=== PATIENT | male | born 1955 | race Two or more races ===

== ENCOUNTER 2018-12-11 10:52 | Inpatient (IN) | payer OTHER ==
[~2018-12-11] VITALS: Ht 180.3 cm; Wt 81.6 kg
[~2018-12-11 10:52] MED LIST: CRESTOR10 MG PO; LISINOPRIL PO; SYNTHROID75 MCG PO
== END 2018-12-13 10:41 | disposition home or self-care (01) | DRG 661 ==
LOC: CIR.AMB 10:52 → SURH 14:35 → EDSTATUS 14:51 → O/R 15:00 → SURH 15:00 → CIR.AMB 15:02 → SURH 12-12 11:22
PROVIDERS: ADMIT Urology
PROC: BT1DZZZ Fluoroscopy of Right Kidney, Ureter and Bladder (ICD-10-PCS; 2018-12-11)
PROC: 0TJB8ZZ Inspection of Bladder, Via Natural or Artificial Opening Endoscopic (ICD-10-PCS; 2018-12-11)
PROC: 0TC03ZZ Extirpation of Matter from Right Kidney, Percutaneous Approach (ICD-10-PCS; principal; 2018-12-11 08:15)
DX: N20.0 Calculus of kidney (principal)

== ENCOUNTER → 2018-12-27 | Outpatient (CLI) | payer OTHER | END | disposition home or self-care (01) | LOC: NUCLEAR 07:27 | DX: I87.2 Venous insufficiency (chronic) (peripheral) (principal) ==